=== PATIENT | male | born 1980 | race African-American/Black ===

== ENCOUNTER 2020-08-07 17:32 | Emergency (ER) | payer OTHER ==
[~2020-08-07 17:32] MED LIST: AUGMENTIN 875-1 EACH PO; DIFLUCAN150 MG PO; LOPRESSOR50 MG PO; MUCINEX D TABL1 EACH PO; MYCOLOG15 GM TOP; NORVASC5 MG PO; PERCOCET 5-3251 EACH PO; VENTOLIN (2.5 MG/3 M INH; VENTOLIN HFA IN18 GM INH; ZOFRAN4 MG PO
[2020-08-07] MEDS ORDERED: MEDROL 4MG DOSEP4 MG PO (20:33)
[2020-08-07] MEDS ORDERED: NORVASC5 MG PO (20:33)
[2020-08-07] MEDS ORDERED: LOPRESSOR50 MG PO (20:33)
[2020-08-07] MEDS ORDERED: NAPROXEN500 MG PO (20:33)
[2020-08-07] MEDS ORDERED: NORCO 5-325 TA1 EACH PO (20:33)
[2020-08-07] MEDS ORDERED: CYCLOBENZAPRINE10 MG PO (20:33)
== END 2020-08-07 20:58 | disposition home or self-care (01) ==
LOC: FER 17:32
DX: S43.402A Unspecified sprain of left shoulder joint, initial encounter (principal); S16.1XXA Strain of muscle, fascia and tendon at neck level, initial encounter; R51.9 Headache, unspecified; I10 Essential (primary) hypertension; Z79.899 Other long term (current) drug therapy; V43.52XA Car driver injured in collision with other type car in traffic accident, initial encounter; Y92.410 Unspecified street and highway as the place of occurrence of the external cause
CPT/HCPCS: 70450; 70486; 72125; 73030; J7512

== ENCOUNTER 2020-09-02 15:19 | Emergency (ER) | payer OTHER ==
[~2020-09-02 15:19] MED LIST changes: +CYCLOBENZAPRINE10 MG PO; +MEDROL 4MG DOSEP4 MG PO; +NAPROXEN500 MG PO; +NORCO 5-325 TA1 EACH PO
[2020-09-02] MEDS ORDERED: BLEPH-105 ML EYEBOTH (16:14)
== END 2020-09-02 16:45 | disposition home or self-care (01) ==
LOC: FER 15:19
DX: S05.02XA Injury of conjunctiva and corneal abrasion without foreign body, left eye, initial encounter (principal); I10 Essential (primary) hypertension; J45.909 Unspecified asthma, uncomplicated; X58.XXXA Exposure to other specified factors, initial encounter
CPT/HCPCS: 99283

== ENCOUNTER 2021-01-24 10:06 | Emergency (ER) | payer OTHER ==
[~2021-01-24] VITALS: Ht 172.7 cm; Wt 117.9 kg
[~2021-01-24 10:06] MED LIST changes: +BLEPH-105 ML EYEBOTH
[2021-01-24 11:29] LABS: BASOPHIL 0.6 % (0-2); EOSINOPHIL 6.7 % (0-5); HCT 48.9 % (42.0-52.0); LYMPHOCYTE 31.5 % (15-48); MCH 30.5 pg (25.0-31.0); MCHC 32.7 g/dL (32.0-36.0); MCV 93.1 fL (78.0-100.0); MONOCYTE 9.7 % (0-12); MPV 10.7 fL (6.0-9.5); NEUTROPHIL 51.1 % (41-80); NRBC 0; PLT 206 K/uL (150-400); RBC 5.25 M/uL (4.70-6.00); RDW 13.3 % (11.5-14.0); WBC 5.1 K/uL (4.0-10.5)
[2021-01-24 11:56] LABS: ALBUMIN 3.4 g/dL (3.4-5.0); BILIRUBIN - TOTAL 0.3 mg/dL (0.2-1.0); BUN/CREAT RATIO (CALC) 7.9 RATIO; CREATININE 1.01 mg/dL (0.67-1.17); GLOBULIN (CALCULATION) 3.4 g/dL; POTASSIUM 4.3 mmol/L (3.5-5.1); TOTAL PROTEIN 6.8 g/dL (6.4-8.2)
[2021-01-24 12:40] LABS: INR 1.03 (0.9-1.2); PROTHROMBIN TIME 12.9 SECONDS (11.8-13.4); PTT 25.8 SECONDS (24.4-34.7)
== END 2021-01-24 15:45 | disposition other institution (70) ==
LOC: FER 10:06
PROVIDERS: Emergency Medicine
DX: I21.4 Non-ST elevation (NSTEMI) myocardial infarction (principal); I10 Essential (primary) hypertension; J45.909 Unspecified asthma, uncomplicated; Z20.822 Contact with and (suspected) exposure to COVID-19
CPT/HCPCS: 36415; 71045; 80053; 83880; 84484; 85025; 85610; 85730; 93005; 96372; J1650; J1940; U0002

== ENCOUNTER 2021-02-15 13:39 | Emergency (ER) | payer OTHER ==
[~2021-02-15] VITALS: Ht 172.7 cm; Wt 117.9 kg
[2021-02-15 15:09] LABS: BASOPHIL 0.4 % (0-2); EOSINOPHIL 5.4 % (0-5); HCT 49.6 % (42.0-52.0); HGB 16.3 g/dl (13.2-18.0); MCH 30.6 pg (25.0-31.0); MCHC 32.9 g/dL (32.0-36.0); MCV 93.1 fL (78.0-100.0); MONOCYTE 9.7 % (0-12); MPV 10.3 fL (6.0-9.5); NEUTROPHIL 61.3 % (41-80); NRBC 0; PLT 239 K/uL (150-400); RBC 5.33 M/uL (4.70-6.00); RDW 12.9 % (11.5-14.0); WBC 5.6 K/uL (4.0-10.5)
[2021-02-15 15:20] LABS: INR 1.02 (0.9-1.2); PROTHROMBIN TIME 12.8 SECONDS (11.8-13.4); PTT 26.4 SECONDS (24.4-34.7)
[2021-02-15 15:26] LABS: ALBUMIN 3.8 g/dL (3.4-5.0); BILIRUBIN - TOTAL 0.3 mg/dL (0.2-1.0); BUN/CREAT RATIO (CALC) 16.5 RATIO; CREATININE 0.91 mg/dL (0.67-1.17); GLOBULIN (CALCULATION) 3.9 g/dL; TOTAL PROTEIN 7.7 g/dL (6.4-8.2)
[2021-02-15 18:09] LABS: AMPHETAMINES NEGATIVE (NEGATIVE); BARBITURATES NEGATIVE (NEGATIVE); ECSTASY (MDMA) NEGATIVE (NEGATIVE); MARIJUANA (THC) NEGATIVE (NEGATIVE); METHADONE NEGATIVE (NEGATIVE); OPIATES POSITIVE (NEGATIVE); OXYCODONE NEGATIVE (NEGATIVE)
[2021-02-15] MEDS ORDERED: OMEPRAZOLE40 MG PO (19:26)
== END 2021-02-16 00:52 | disposition home or self-care (01) ==
LOC: FER 13:39
PROVIDERS: Internal Medicine
DX: I20.8 Other forms of angina pectoris (principal); I10 Essential (primary) hypertension; R10.13 Epigastric pain; Z87.09 Personal history of other diseases of the respiratory system; Z88.8 Allergy status to other drugs, medicaments and biological substances
CPT/HCPCS: 36415; 71045; 71275; 80053; 80305; 83690; 84484; 85025; 85610; 85730; 93005; 93971; C9113; J1940; J2270; J2405; J7030; Q9967

== ENCOUNTER 2021-10-15 14:31 | Day surgery (SDCO) | payer OTHER ==
[~2021-10-15] VITALS: Ht 172.7 cm; Wt 119.0 kg
[~2021-10-15 14:31] MED LIST changes: +OMEPRAZOLE40 MG PO
[2021-10-15 15:02] LABS: BASOPHIL 0.6 % (0-2); EOSINOPHIL 5.8 % (0-5); LYMPHOCYTE 33.9 % (15-48); MCH 31.1 pg (25.0-31.0); MCHC 33.3 g/dL (32.0-36.0); MCV 93.2 fL (78.0-100.0); MONOCYTE 10.6 % (0-12); MPV 10.7 fL (6.0-9.5); NEUTROPHIL 48.5 % (41-80); NRBC 0; PLT 209 K/uL (150-400); RBC 5.15 M/uL (4.70-6.00); RDW 13.2 % (11.5-14.0); WBC 5.2 K/uL (4.0-10.5)
[2021-10-15 15:07] LABS: INR 1.06 (0.9-1.2); PROTHROMBIN TIME 13.2 SECONDS (11.8-13.4); PTT 23.4 SECONDS (24.4-34.7)
[2021-10-15 15:16] LABS: ALBUMIN 3.7 g/dL (3.4-5.0); ALKALINE PHOSHATASE 64 U/L (46-116); ALT 32 U/L (16-63); AST 44 U/L (15-37); BILIRUBIN - TOTAL 0.3 mg/dL (0.2-1.0); BUN 13 mg/dL (7-18); CHLORIDE 104 mmol/L (98-107); CO2 (BICARBONATE) 26 mmol/L (21-32); GLOBULIN (CALCULATION) 3.3 g/dL; GLUCOSE 121 mg/dL (74-106); LIPASE 133 U/L (73-393); MAGNESIUM 1.7 mg/dL (1.8-2.4); POTASSIUM 3.8 mmol/L (3.5-5.1)
[2021-10-15 15:24] LABS: LACTIC ACID 0.9 mmol/L (0.4-1.9)
[2021-10-15 16:23] LABS: BILIRUBIN NEGATIVE (NEGATIVE); BLOOD NEGATIVE Ery/uL (NEGATIVE); CLARITY CLEAR (CLEAR); COLOR YELLOW (YELLOW); GLUCOSE (U) NORMAL (NORMAL); LEUKOCYTES NEGATIVE Leu/uL (NEGATIVE); NITRITE NEGATIVE (NEGATIVE); PROTEIN 2+ mg/dL (NEGATIVE); SPECIFIC GRAVITY >=1.030 (1.001-1.030); UROBILINOGEN 0.2 mg/dL (0.2-1.0)
[2021-10-15 16:39] LABS: MUCOUS MODERATE
[2021-10-15 17:03] LABS: AMPHETAMINES NEGATIVE (NEGATIVE); BARBITURATES NEGATIVE (NEGATIVE); ECSTASY (MDMA) NEGATIVE (NEGATIVE); MARIJUANA (THC) NEGATIVE (NEGATIVE); METHADONE NEGATIVE (NEGATIVE); OPIATES NEGATIVE (NEGATIVE); OXYCODONE NEGATIVE (NEGATIVE)
[2021-10-15] MEDS ORDERED: ALDACTONE25 MG PO (21:26)
[2021-10-15] MEDS ORDERED: CLONIDINE HCL0.1 M1 PO (21:27)
[2021-10-15] MEDS ORDERED: NORVASC5 MG PO (21:27)
[2021-10-15] MEDS ORDERED: ZOLOFT50 MG PO (21:27)
[2021-10-15] MEDS ORDERED: METFORMIN HCL500 MG PO (21:28)
[2021-10-15] MEDS ORDERED: ENTRESTO 49 MG1 EACH PO (21:28)
[2021-10-15] MEDS ORDERED: LOSARTAN-HCTZ1 EAC1 PO (21:29)
[2021-10-15] MEDS ORDERED: BUSPAR5 MG PO (21:30)
[2021-10-15] MEDS ORDERED: FLONASE ALLER15.8 ML (21:30)
[2021-10-15] MEDS ORDERED: LOPRESSOR25 MG PO (21:30)
[2021-10-15] MEDS ORDERED: VENTOLIN HFA IN18 GM INH (21:31)
[2021-10-16] MEDS ORDERED: METFORMIN HCL500 M2 PO (01:11)
[2021-10-16] MEDS ORDERED: ADVAIR 100-501 EACH INH (01:11)
[2021-10-16] MEDS ORDERED: ATARAX25 MG PO (01:12)
--- NOTE | 2021-10-16 03:35 | NUR ---
10/16/21 0030: JUSTYN MIGUEL, AUTO SUSPENSION AND STEERING MECHANIC NOTIFIED OF ORTHOSTATIC VS RESULTS. PATIENT IS HYPERTENSIVE AT 168/112. MYRIAM ORDERED MEDS TO BE GIVEN NOW, AND START BID IN AM. SEE EMAR. NO DISTRESS NOTED. PATIENT DENIES CHEST PAIN, SOB, DIZZINESS.
[2021-10-16 07:22] LABS: BASOPHIL 0.6 % (0-2); HCT 50.6 % (42.0-52.0); HGB 16.6 g/dl (13.2-18.0); LYMPHOCYTE 44.6 % (15-48); MCH 30.7 pg (25.0-31.0); MCHC 32.8 g/dL (32.0-36.0); MCV 93.7 fL (78.0-100.0); MPV 10.7 fL (6.0-9.5); NEUTROPHIL 38.4 % (41-80); NRBC 0; PLT 225 K/uL (150-400)
[2021-10-16 07:57] LABS: BUN/CREAT RATIO (CALC) 9.1 RATIO; CREATININE 0.99 mg/dL (0.67-1.17); FT4 (FREE T4) 0.9 ng/dL (0.76-1.46); POTASSIUM 4.2 mmol/L (3.5-5.1)
== END 2021-10-16 10:55 | disposition home or self-care (01) ==
LOC: FER 14:31 → FMS 19:27
PROVIDERS: Emergency Medicine; Nurse Practitioner Acute Care; ADMIT Internal Medicine
DX: R55 Syncope and collapse (principal); R11.2 Nausea with vomiting, unspecified; M62.82 Rhabdomyolysis; I11.0 Hypertensive heart disease with heart failure; I50.9 Heart failure, unspecified; E11.65 Type 2 diabetes mellitus with hyperglycemia; F14.10 Cocaine abuse, uncomplicated; R94.31 Abnormal electrocardiogram [ECG] [EKG]; I49.3 Ventricular premature depolarization; E83.42 Hypomagnesemia; J45.909 Unspecified asthma, uncomplicated; Z88.8 Allergy status to other drugs, medicaments and biological substances
CPT/HCPCS: 36415; 36600; 70450; 71045; 80048; 80053; 80305; 81001; 82140; 82550; 82803; 83036; 83605; 83690; 83735; 83880; 84145; 84439; 84443; 84484; 85025; 85610; 85730; 93005; 94640; G0378; G0480; J1650; J3475; J7030